=== PATIENT | female | born 1965 | race Two or more races ===

== ENCOUNTER 2023-12-04 14:50 | Emergency (ER) | payer OTHER ==
[~2023-12-04] VITALS: Ht 149.9 cm; Wt 59.0 kg
[2023-12-04] MEDS ORDERED: BUTALB/ACETAMINOPHEN/CAFFEINE 1 TAB TABLET PO ONE ×2 (16:40→16:45)
[2023-12-04] MEDS ORDERED: BUTALB-ACETAMI1 EAC2 PO (17:48)
[2023-12-04] MEDS ORDERED: PEPCID20 MG PO (17:48)
== END 2023-12-04 17:57 | disposition home or self-care (01) ==
LOC: ER 14:50
DX: G43.109 Migraine with aura, not intractable, without status migrainosus (principal); Z88.2 Allergy status to sulfonamides; Z88.6 Allergy status to analgesic agent